=== PATIENT | male | born 1940 ===

== ENCOUNTER 2022-12-07 02:19 | Inpatient (IN) | payer MEDICARE ==
[~2022-12-07 02:19] MED LIST: Adenosine 6 MG/2 ML VIAL ONE; Heparin 10,000 UNITS/ 10 ML VIAL ONE; Lidocaine 1% (PF) 30 ML VIAL ONE; Nitroglycerin 50 MG/250 ML BOT 0 ML ONE; Verapamil 5 MG/2 ML VIAL ONE
[2022-12-07] MEDS ORDERED: Heparin 25,000 units/D5W 0 ML ONE (02:27)
[2022-12-07 02:42] LABS: #Basophils 0.1 thou/uL (0.0-0.2); #Eosinphils 0.2 thou/uL (0.0-0.7); #Lymphocytes 2.8 thou/uL (1.20-3.40); #Monocytes 1.1 thou/uL (0.11-0.59); #Neutrophils 10.1 thou/uL (1.40-6.50); %Basophils 0.4 % (0.0-1.0); %Eosinophils 1.4 % (0.0-10.0); %Lymphocytes 19.5 % (21.0-51.0); %Neutrophils 70.7 % (42.0-75.0); Hemoglobin 11.7 g/dL (14.0-18.0); Mean Corpuscular HGB CONC 30.9 g/dL (32.0-36.0); Mean Corpuscular Hemoglobin 27.7 pg (27.0-31.0); Mean Corpuscular Volume 89.6 fl (78.0-98.0); Mean Platelet Volume 10.8 fL (7.4-10.4); Platelet Count 150 10x3/uL (130-400); RBC Distribution Width 15.9 % (11.5-14.5); Red Blood Cell (RBC) Count 4.21 mill/uL (4.70-6.10); White Blood Cell (WBC) Count 14.3 10x3/uL (4.8-10.8)
[2022-12-07] MEDS ORDERED: fentaNYL 50 mcg/mL 1 mL Vial ONE (02:45)
[2022-12-07] MEDS ORDERED: Heparin 25,000 units/D5W 500 ML ONE (02:45)
[2022-12-07 02:50] LABS: INR-International Normal Ratio 1.2; Prothrombin Time 15.4 sec (12.0-14.7)
[2022-12-07 02:51] LABS: PTT 75.9 sec (22.9-36.1)
[2022-12-07] MEDS ORDERED: PHENYLEPHRINE-NS 100 MCG/ML 10 ML SYRINGE ONE (02:55)
[2022-12-07] MEDS ORDERED: EPINEPHrine 1 MG/10 ML Abboject SYRINGE ONE (02:55)
[2022-12-07 03:01] LABS: ALT (SGPT) 14 U/L (8-55); AST (SGOT) 15 U/L (5-34); Albumin 4.3 g/dL (3.4-4.8); Alkaline Phosphatase 64 U/L (40-110); Anion Gap 22 mmol/L (10-20); BUN (Urea Nitrogen) 38 mg/dL (8.4-25.7); Bilirubin, Total 0.4 mg/dL (0.2-1.2); CK (CPK) 85 U/L (30-200); Calc. Creatinine Clearance 0 mL/min (70-130); Calcium 10.4 mg/dL (7.8-10.44); Carbon Dioxide 16 mmol/L (23-31); Chloride 102 mmol/L (98-107); Estimated GFR 52; Globulin 3.2 g/dL (2.4-3.5); Glucose 269 mg/dL (83-110); Lipase 78 U/L (8-78); Potassium 4.4 mmol/L (3.5-5.1); Protein, Total 7.5 g/dL (5.8-8.1); Sodium 136 mmol/L (136-145)
[2022-12-07 03:21] LABS: CKMB 2.6 ng/mL (0-6.6)
[2022-12-07] MEDS ORDERED: Acetaminophen 500 MG TAB PO PRN (04:35)
[2022-12-07] MEDS: fentaNYL 50 mcg/mL 1 mL Vial SLOW IVP PRN ×2 (04:41→08:41)
[2022-12-07] MEDS ORDERED: Nitroglycerin 2% Ointment 1 INCH/1 GM Packet TOP SCH (04:45)
[2022-12-07 05:08] VITALS: BMI 24.3
[2022-12-07] MEDS ORDERED: Electrolyte Replacement Protocol FS SCH (05:30)
[2022-12-07] MEDS ORDERED: HumaLOG 300 UNITS/3 ML VIAL SC SCH (05:30)
[2022-12-07] MEDS ORDERED: Labetalol HCl 100 MG/20 ML VIAL SLOW IVP PRN (05:47)
[2022-12-07] MEDS: hydrALAZINE 20 MG/ML VIAL SLOW IVP PRN ×2 (06:17→09:47)
[2022-12-07] MEDS: HumaLOG 300 UNITS/3 ML VIAL SC PRN ×4 (06:22→22:54)
[2022-12-07] MEDS: Sodium Chloride 0.9% 1,000 ML IV SCH ×2 (07:26→15:47)
[2022-12-07] MEDS ORDERED: Carvedilol 3.125 MG TAB PO SCH (08:00)
[2022-12-07 08:26] LABS: Anion Gap 19 mmol/L (10-20); BUN (Urea Nitrogen) 34 mg/dL (8.4-25.7); Calc. Creatinine Clearance 46 mL/min (70-130); Calcium 9.9 mg/dL (7.8-10.44); Carbon Dioxide 17 mmol/L (23-31); Chloride 103 mmol/L (98-107); Estimated GFR 56; Glucose 297 mg/dL (83-110); Potassium 4.2 mmol/L (3.5-5.1); Sodium 135 mmol/L (136-145)
[2022-12-07 08:38] LABS: Troponin I 4.344 ng/mL (< 0.028)
[2022-12-07] MEDS: Lisinopril 10 MG TAB PO SCH ×2 (08:42→21:09)
[2022-12-07] MEDS: Furosemide 20 MG TAB PO SCH (08:42)
[2022-12-07] MEDS: Aspirin 81 mg Enteric Coated Tablet PO SCH (08:42)
[2022-12-07] MEDS: DULoxetine 60 MG CAP PO SCH (08:43)
[2022-12-07] MEDS: Famotidine/PF 20 mg/2ml Vial SLOW IVP SCH ×2 (08:43→21:10)
[2022-12-07] MEDS: Potassium Chloride 10 MEQ TAB PO SCH ×2 (08:43→21:09)
[2022-12-07] MEDS ORDERED: Rosuvastatin 10 MG TAB PO SCH (09:00)
[2022-12-07 11:49] LABS: Bilirubin Negative (Negative); Blood, Urine Negative (Negative); Clarity Clear (Clear); Glucose, Urine (Dipstick) Greater than 1000 mg/dL (Negative); Ketone, Urine Trace mg/dL (Negative); Leukocyte Negative Leu/uL (Negative); Nitrite Negative (Negative); Protein, Urine (Dipstick) Negative (Neg-Trace); Specific Gravity, Urine 1.039 (1.002-1.036); Urobilinogen Normal mg/dL (Less than 2)
[2022-12-07] MEDS: Acetaminophen 325 MG TAB PO PRN (12:20)
[2022-12-07] MEDS: Morphine 2 MG/ML VIAL SLOW IVP PRN (13:39)
[2022-12-07] MEDS: Nitroglycerin 2% Ointment 1 INCH/1 GM Packet TOP SCH ×2 (13:40→21:10)
[2022-12-07 13:52] LABS: Troponin I 151.843 ng/mL (< 0.028)
[2022-12-07] MEDS ORDERED: Iopamidol 370 76% 100 ML VIAL ONE (15:12)
[2022-12-07] MEDS: Carvedilol 6.25 MG TAB PO SCH (17:07)
[2022-12-07] MEDS: Rosuvastatin 10 MG TAB PO SCH (21:09)
[2022-12-08] MEDS: Sodium Chloride 0.9% 1,000 ML IV SCH ×3 (00:46→23:38)
[2022-12-08 04:28] LABS: #Lymphocytes 1.1 thou/uL (1.20-3.40); #Monocytes 1.2 thou/uL (0.11-0.59); #Neutrophils 9.2 thou/uL (1.40-6.50); %Basophils 0.1 % (0.0-1.0); %Eosinophils 0.3 % (0.0-10.0); %Lymphocytes 9.5 % (21.0-51.0); %Monocytes 10.1 % (0.0-10.0); Hemoglobin 9.6 g/dL (14.0-18.0); Mean Corpuscular Hemoglobin 27.2 pg (27.0-31.0); Platelet Count 159 10x3/uL (130-400); RBC Distribution Width 15.6 % (11.5-14.5); Red Blood Cell (RBC) Count 3.52 mill/uL (4.70-6.10); White Blood Cell (WBC) Count 11.5 10x3/uL (4.8-10.8)
[2022-12-08 04:56] LABS: Anion Gap 12 mmol/L (10-20); BUN (Urea Nitrogen) 24 mg/dL (8.4-25.7); Calc. Creatinine Clearance 67 mL/min (70-130); Calcium 7.2 mg/dL (7.8-10.44); Carbon Dioxide 15 mmol/L (23-31); Chloride 116 mmol/L (98-107); Estimated GFR 87; Glucose 180 mg/dL (83-110); Magnesium 1.4 mg/dL (1.6-2.6); Phosphorus 2.6 mg/dL (2.3-4.7); Potassium 3.6 mmol/L (3.5-5.1); Sodium 139 mmol/L (136-145)
[2022-12-08] MEDS ORDERED: Magnesium Sulfate In Water 4 GM in Premix Bag 1 BAG IVPB SCH (05:30)
[2022-12-08] MEDS: HumaLOG 300 UNITS/3 ML VIAL SC PRN ×2 (06:12→20:58)
[2022-12-08] MEDS: Nitroglycerin 2% Ointment 1 INCH/1 GM Packet TOP SCH (06:14)
[2022-12-08] MEDS: Furosemide 20 MG TAB PO SCH (08:07)
[2022-12-08] MEDS: Carvedilol 6.25 MG TAB PO SCH ×2 (08:07→16:55)
[2022-12-08] MEDS: Lisinopril 10 MG TAB PO SCH ×2 (08:07→20:57)
[2022-12-08] MEDS: Potassium Chloride 10 MEQ TAB PO SCH ×2 (08:07→20:58)
[2022-12-08] MEDS: Aspirin 81 mg Enteric Coated Tablet PO SCH (08:07)
[2022-12-08] MEDS: Famotidine/PF 20 mg/2ml Vial SLOW IVP SCH ×2 (08:08→20:54)
[2022-12-08] MEDS: DULoxetine 60 MG CAP PO SCH (08:08)
[2022-12-08] MEDS: Empagliflozin 10 MG TAB PO SCH (08:18)
[2022-12-08] MEDS: Morphine 2 MG/ML VIAL SLOW IVP PRN (11:13)
[2022-12-08] MEDS: fentaNYL 50 mcg/mL 1 mL Vial SLOW IVP PRN (13:10)
[2022-12-08] MEDS: Rosuvastatin 10 MG TAB PO SCH (20:54)
[2022-12-09] MEDS: HumaLOG 300 UNITS/3 ML VIAL SC PRN ×4 (06:01→22:38)
[2022-12-09 06:10] LABS: Magnesium 2.6 mg/dL (1.6-2.6)
[2022-12-09 06:13] LABS: Troponin I 37.915 ng/mL (< 0.028)
[2022-12-09] MEDS: Carvedilol 6.25 MG TAB PO SCH ×2 (08:56→16:44)
[2022-12-09] MEDS: Lisinopril 10 MG TAB PO SCH ×2 (08:57→21:17)
[2022-12-09] MEDS: Famotidine/PF 20 mg/2ml Vial SLOW IVP SCH ×2 (08:57→21:17)
[2022-12-09] MEDS: Potassium Chloride 10 MEQ TAB PO SCH ×2 (08:58→21:17)
[2022-12-09] MEDS: Aspirin 81 mg Enteric Coated Tablet PO SCH (08:58)
[2022-12-09] MEDS: Furosemide 20 MG TAB PO SCH (08:58)
[2022-12-09] MEDS ORDERED: Apixaban 5 MG TAB PO SCH (09:00)
[2022-12-09] MEDS: Sodium Chloride 0.9% 1,000 ML IV SCH ×2 (09:16→19:13)
[2022-12-09] MEDS: Empagliflozin 10 MG TAB PO SCH (09:16)
[2022-12-09] MEDS: Acetaminophen 325 MG TAB PO PRN (11:18)
[2022-12-09] MEDS: Apixaban 5 MG TAB PO SCH (21:17)
[2022-12-09] MEDS: Rosuvastatin 10 MG TAB PO SCH (21:17)
[2022-12-10 04:53] LABS: #Eosinphils 0.2 thou/uL (0.0-0.7); #Lymphocytes 1.6 thou/uL (1.20-3.40); #Monocytes 1.4 thou/uL (0.11-0.59); #Neutrophils 6.5 thou/uL (1.40-6.50); %Basophils 0.4 % (0.0-1.0); %Lymphocytes 16.7 % (21.0-51.0); %Monocytes 13.8 % (0.0-10.0); Hemoglobin 10.6 g/dL (14.0-18.0); Mean Corpuscular HGB CONC 32.4 g/dL (32.0-36.0); Mean Corpuscular Hemoglobin 28.1 pg (27.0-31.0); Mean Corpuscular Volume 86.5 fl (78.0-98.0); Mean Platelet Volume 10.5 fL (7.4-10.4); Platelet Count 160 10x3/uL (130-400); RBC Distribution Width 15.8 % (11.5-14.5); White Blood Cell (WBC) Count 9.8 10x3/uL (4.8-10.8)
[2022-12-10 05:11] LABS: Anion Gap 16 mmol/L (10-20); BUN (Urea Nitrogen) 36 mg/dL (8.4-25.7); Calc. Creatinine Clearance 46 mL/min (70-130); Carbon Dioxide 13 mmol/L (23-31); Chloride 112 mmol/L (98-107); Estimated GFR 57; Glucose 206 mg/dL (83-110); Potassium 4.2 mmol/L (3.5-5.1); Sodium 137 mmol/L (136-145)
[2022-12-10] MEDS: Apixaban 5 MG TAB PO SCH ×2 (10:05→20:24)
[2022-12-10] MEDS: Furosemide 20 MG TAB PO SCH (10:06)
[2022-12-10] MEDS: Carvedilol 6.25 MG TAB PO SCH ×2 (10:06→18:20)
[2022-12-10] MEDS: Potassium Chloride 10 MEQ TAB PO SCH ×2 (10:06→20:26)
[2022-12-10] MEDS: Lisinopril 10 MG TAB PO SCH ×2 (10:06→20:24)
[2022-12-10] MEDS: Aspirin 81 mg Enteric Coated Tablet PO SCH (10:06)
[2022-12-10] MEDS: Empagliflozin 10 MG TAB PO SCH (10:06)
[2022-12-10] MEDS: Famotidine/PF 20 mg/2ml Vial SLOW IVP SCH ×2 (10:07→20:26)
[2022-12-10] MEDS: HumaLOG 300 UNITS/3 ML VIAL SC PRN (11:48)
[2022-12-10] MEDS: Rosuvastatin 10 MG TAB PO SCH (20:26)
[2022-12-11] MEDS: Famotidine/PF 20 mg/2ml Vial SLOW IVP SCH ×2 (09:23→20:34)
[2022-12-11] MEDS: Furosemide 20 MG TAB PO SCH (09:23)
[2022-12-11] MEDS: Lisinopril 10 MG TAB PO SCH ×2 (09:23→20:33)
[2022-12-11] MEDS: Aspirin 81 mg Enteric Coated Tablet PO SCH (09:23)
[2022-12-11] MEDS: Empagliflozin 10 MG TAB PO SCH (09:23)
[2022-12-11] MEDS: Apixaban 5 MG TAB PO SCH ×2 (09:23→20:33)
[2022-12-11] MEDS: Potassium Chloride 10 MEQ TAB PO SCH ×2 (09:23→20:33)
[2022-12-11] MEDS: Carvedilol 6.25 MG TAB PO SCH (09:23)
[2022-12-11] MEDS: HumaLOG 300 UNITS/3 ML VIAL SC PRN ×2 (12:06→17:17)
[2022-12-11] MEDS ORDERED: Carvedilol 6.25 MG TAB PO SCH (17:00)
[2022-12-11] MEDS: Rosuvastatin 10 MG TAB PO SCH (20:33)
[2022-12-12] MEDS: Empagliflozin 10 MG TAB PO SCH (09:14)
[2022-12-12] MEDS: Lisinopril 10 MG TAB PO SCH ×2 (09:14→21:13)
[2022-12-12] MEDS: Carvedilol 25 MG TAB PO SCH ×2 (09:14→16:21)
[2022-12-12] MEDS: Aspirin 81 mg Enteric Coated Tablet PO SCH (09:14)
[2022-12-12] MEDS: Apixaban 5 MG TAB PO SCH ×2 (09:14→21:13)
[2022-12-12] MEDS: Furosemide 20 MG TAB PO SCH (09:14)
[2022-12-12] MEDS: Potassium Chloride 10 MEQ TAB PO SCH ×2 (09:14→21:13)
[2022-12-12] MEDS: Famotidine/PF 20 mg/2ml Vial SLOW IVP SCH ×2 (09:16→21:13)
[2022-12-12] MEDS: HumaLOG 300 UNITS/3 ML VIAL SC PRN ×2 (12:07→16:24)
[2022-12-12] MEDS: Rosuvastatin 10 MG TAB PO SCH (21:13)
[2022-12-13 06:01] LABS: Anion Gap 13 mmol/L (10-20); BUN (Urea Nitrogen) 33 mg/dL (8.4-25.7); Calc. Creatinine Clearance 47 mL/min (70-130); Carbon Dioxide 22 mmol/L (23-31); Chloride 108 mmol/L (98-107); Estimated GFR 54; Glucose 161 mg/dL (83-110); Potassium 4.4 mmol/L (3.5-5.1); Sodium 139 mmol/L (136-145)
[2022-12-13] MEDS: Famotidine 20 MG TAB PO SCH ×2 (09:12→21:54)
[2022-12-13] MEDS: Carvedilol 25 MG TAB PO SCH ×2 (09:12→16:34)
[2022-12-13] MEDS: Aspirin 81 mg Enteric Coated Tablet PO SCH (09:12)
[2022-12-13] MEDS: Empagliflozin 10 MG TAB PO SCH (09:12)
[2022-12-13] MEDS: Apixaban 5 MG TAB PO SCH ×2 (09:12→21:53)
[2022-12-13] MEDS: Potassium Chloride 10 MEQ TAB PO SCH ×2 (09:13→21:53)
[2022-12-13] MEDS: Lisinopril 10 MG TAB PO SCH ×2 (09:13→21:53)
[2022-12-13] MEDS: hydrALAZINE 25 MG TAB PO SCH ×2 (09:13→21:53)
[2022-12-13] MEDS: Furosemide 20 MG TAB PO SCH (09:13)
[2022-12-13] MEDS: HumaLOG 300 UNITS/3 ML VIAL SC PRN ×2 (11:18→16:36)
[2022-12-13] MEDS: Rosuvastatin 10 MG TAB PO SCH (21:53)
[2022-12-14] MEDS: Famotidine 20 MG TAB PO SCH (10:22)
[2022-12-14] MEDS: Furosemide 20 MG TAB PO SCH (10:23)
[2022-12-14] MEDS: Empagliflozin 10 MG TAB PO SCH (10:23)
[2022-12-14] MEDS: Potassium Chloride 10 MEQ TAB PO SCH ×2 (10:23→22:26)
[2022-12-14] MEDS: Aspirin 81 mg Enteric Coated Tablet PO SCH (10:23)
[2022-12-14] MEDS: Lisinopril 20 MG TAB PO SCH ×2 (10:23→22:27)
[2022-12-14] MEDS: Apixaban 5 MG TAB PO SCH ×2 (10:23→22:25)
[2022-12-14] MEDS: hydrALAZINE 25 MG TAB PO SCH ×2 (10:23→22:25)
[2022-12-14] MEDS: Carvedilol 25 MG TAB PO SCH ×2 (10:24→17:37)
[2022-12-14] MEDS: HumaLOG 300 UNITS/3 ML VIAL SC PRN ×2 (12:05→17:38)
[2022-12-14] MEDS: Rosuvastatin 10 MG TAB PO SCH (22:27)
[2022-12-15 05:29] LABS: Anion Gap 15 mmol/L (10-20); BUN (Urea Nitrogen) 32 mg/dL (8.4-25.7); Calc. Creatinine Clearance 46 mL/min (70-130); Calcium 8.5 mg/dL (7.8-10.44); Carbon Dioxide 22 mmol/L (23-31); Chloride 108 mmol/L (98-107); Estimated GFR 53; Glucose 206 mg/dL (83-110); Potassium 4.8 mmol/L (3.5-5.1); Sodium 140 mmol/L (136-145)
[2022-12-15] MEDS: Potassium Chloride 10 MEQ TAB PO SCH ×2 (10:15→20:25)
[2022-12-15] MEDS: Aspirin 81 mg Enteric Coated Tablet PO SCH (10:15)
[2022-12-15] MEDS: DULoxetine 60 MG CAP PO SCH (10:15)
[2022-12-15] MEDS: Carvedilol 25 MG TAB PO SCH ×2 (10:15→16:56)
[2022-12-15] MEDS: Famotidine 20 MG TAB PO SCH (10:15)
[2022-12-15] MEDS: Apixaban 5 MG TAB PO SCH ×2 (10:15→20:25)
[2022-12-15] MEDS: hydrALAZINE 25 MG TAB PO SCH ×2 (10:15→20:23)
[2022-12-15] MEDS: Empagliflozin 10 MG TAB PO SCH (10:15)
[2022-12-15] MEDS: Furosemide 20 MG TAB PO SCH (10:15)
[2022-12-15] MEDS: Lisinopril 20 MG TAB PO SCH ×2 (10:16→20:24)
[2022-12-15 14:24] LABS: SARS-CoV-2 NAA Rapid Test DETECTED (NotDetected)
[2022-12-15] MEDS: Rosuvastatin 10 MG TAB PO SCH (20:25)
[2022-12-16] MEDS: Famotidine 20 MG TAB PO SCH (09:22)
[2022-12-16] MEDS: hydrALAZINE 25 MG TAB PO SCH (09:22)
[2022-12-16] MEDS: Carvedilol 25 MG TAB PO SCH (09:22)
[2022-12-16] MEDS: Apixaban 5 MG TAB PO SCH (09:22)
[2022-12-16] MEDS: Lisinopril 20 MG TAB PO SCH (09:23)
[2022-12-16] MEDS: Furosemide 20 MG TAB PO SCH (09:23)
[2022-12-16] MEDS: DULoxetine 60 MG CAP PO SCH (09:23)
[2022-12-16] MEDS: Aspirin 81 mg Enteric Coated Tablet PO SCH (09:23)
[2022-12-16] MEDS: Empagliflozin 10 MG TAB PO SCH (09:23)
[2022-12-16] MEDS: Potassium Chloride 10 MEQ TAB PO SCH (09:23)
[2022-12-16 12:52] VITALS: BP 145/70; TEMP 97.8
== END 2022-12-16 14:55 | disposition home or self-care (01) | DRG 280 ==
LOC: ERS 02:19 → SDC/OP 02:28 → CCU 03:17 → 2NO 12-09 19:58
PROVIDERS: ADMIT Internal Medicine Cardiovascular Disease; ATTEND Internal Medicine Cardiovascular Disease
PROC: 4A023N7 Measurement of Cardiac Sampling and Pressure, Left Heart, Percutaneous Approach (ICD-10-PCS; principal; 2022-12-07)
PROC: B2111ZZ Fluoroscopy of Multiple Coronary Arteries using Low Osmolar Contrast (ICD-10-PCS; 2022-12-07)
PROC: 3E033XZ Introduction of Vasopressor into Peripheral Vein, Percutaneous Approach (ICD-10-PCS; 2022-12-07)
DX: I21.09 ST elevation (STEMI) myocardial infarction involving other coronary artery of anterior wall (principal); U07.1 COVID-19; E87.20 Acidosis, unspecified; N17.9 Acute kidney failure, unspecified; I48.0 Paroxysmal atrial fibrillation; I25.10 Atherosclerotic heart disease of native coronary artery without angina pectoris; I11.0 Hypertensive heart disease with heart failure; I50.9 Heart failure, unspecified; F03.90 Unspecified dementia, unspecified severity, without behavioral disturbance, psychotic disturbance, mood disturbance, and anxiety; I25.5 Ischemic cardiomyopathy; E11.9 Type 2 diabetes mellitus without complications; D72.829 Elevated white blood cell count, unspecified; D64.9 Anemia, unspecified; Z91.018 Allergy to other foods; Z79.82 Long term (current) use of aspirin; Z95.0 Presence of cardiac pacemaker; Z95.2 Presence of prosthetic heart valve; Z79.899 Other long term (current) drug therapy
CPT/HCPCS: 36415; 36416; 71045; 80048; 80053; 81003; 82010; 82550; 82553; 83605; 83690; 83735; 84100; 84484; 85025; 85347; 85610; 85730; 87086; 93005; 93010; 93306; 93458; 94760; C1769; C1887; C1894; J0153; J0171; J0360; J1644; J1815; J2001; J2272; J3010; J3475; J3490; J7050; Q9967; S0028; U0002